=== PATIENT | male | born 1950 | race Caucasian/White ===

== ENCOUNTER 2019-07-13 05:07 | Inpatient (IN) ==
[2019-07-02 10:45] LABS: HEMATOCRIT 41.5 % (42.0-52.0); HEMOGLOBIN 14.1 g/dL (14.0-18.0); MCH 29.9 PG (27-31); MCV 88.1 FL (81-99); RBC 4.71 XMIL (4.7-6.1); WBC 4.95 X1000 (4.8-10.8)
[2019-07-02 11:16] LABS: AGAP 16; BUN 11 mg/dL (8-22); CALCIUM 8.8 mg/dL (8.8-10.2); CHLORIDE 102 mmol/L (98-107); COSMO 283; CREATININE 0.7 mg/dL (0.7-1.2); ESTIMATED GFR > 60; GLUCOSE 235 mg/dL (70-104); POTASSIUM 4.3 mmol/L (3.5-5.1); SODIUM 138 mmol/L (136-145); TCO2 20 mmol/L (25-35)
[2019-07-13] MEDS ORDERED: KEFZOL 1 GM/D5W 1 GM/50 ML IVPB ONE (05:39)
[2019-07-13] MEDS ORDERED: NITROGLYCERIN 50 MG/D5W 50 MG/250 ML IV.SOLN ONE (06:28)
[2019-07-13] MEDS ORDERED: LR 1,000 ML ONE ×2 (06:32→09:28)
[2019-07-13] MEDS ORDERED: NEO-SYNEPHRINE ONE (06:33)
[2019-07-13] MEDS ORDERED: XYLOCAINE-MPF 2% ONE (06:42)
[2019-07-13] MEDS ORDERED: NORCURON ONE (06:42)
[2019-07-13] MEDS ORDERED: SODIUM CHLORIDE 0.9% 10 ML ONE (06:42)
[2019-07-13] MEDS ORDERED: QUELICIN (DOSE) ONE (06:42)
[2019-07-13] MEDS ORDERED: FENTANYL ONE (06:43)
[2019-07-13] MEDS ORDERED: DIPRIVAN 1% ONE (06:43)
[2019-07-13] MEDS ORDERED: MARCAINE 0.25% PF/EPI 1:200,000 ONE (06:44)
[2019-07-13] MEDS ORDERED: NS 500 ML ONE (06:44)
[2019-07-13] MEDS ORDERED: XYLOCAINE 1% ONE (06:44)
[2019-07-13] MEDS ORDERED: NS 1,000 ML ONE (06:44)
[2019-07-13] MEDS ORDERED: HEPARIN ONE (06:44)
[2019-07-13] MEDS ORDERED: KEFZOL ONE (06:44)
[2019-07-13] MEDS ORDERED: VERSED ONE (06:52)
[2019-07-13] MEDS ORDERED: SODIUM CHLORIDE 0.9% ONE (06:53)
[2019-07-13] MEDS ORDERED: ROBINUL ONE ×2 (07:31→08:38)
[2019-07-13] MEDS ORDERED: ATROPINE ONE (07:31)
[2019-07-13] MEDS ORDERED: ZOFRAN ONE (07:32)
[2019-07-13] MEDS ORDERED: HEPARIN (DOSE) ONE (07:36)
[2019-07-13] MEDS ORDERED: OFIRMEV 1000 MG/ISOTONIC SOLN 1,000 MG/100 ML BOTTLE ONE (07:37)
[2019-07-13] MEDS ORDERED: EPHEDRINE ONE (07:39)
[2019-07-13] MEDS ORDERED: LTA KIT ONE (07:41)
[2019-07-13] MEDS ORDERED: NEOSTIGMINE ONE (08:40)
--- NOTE | 2019-07-13 09:21 | OPERATIVE NOTE ---
PROCEDURE DATE: 07/13/2019 PROCEDURE PERFORMED: Right carotid endarterectomy with patch angioplasty. SURGEON: Ryne Braga M.D. LOGGING ASSISTANT: Anselmo Ca RN. PREOPERATIVE DIAGNOSIS: High-grade right internal carotid stenosis. POSTOPERATIVE DIAGNOSIS: High-grade right internal carotid stenosis. DESCRIPTION OF PROCEDURE: Satisfactory general endotracheal anesthesia was achieved. The right side of the neck was prepped and draped in a sterile fashion. We placed the patient in a slight reverse Trendelenburg position. The skin was marked in an oblique fashion. We anesthetized the skin with 0.25 Marcaine with epinephrine. We incised the skin, and carried our incision into the subcutaneous tissue, through the platysma. We placed a Gelpi retractor. We identified the sternocleidomastoid muscle, and dissected along its anterior border. We identified the common carotid, and surrounded it with an umbilical tape. Then, 5000 units of heparin were given. We then ligated the branching veins coming off the internal jugular vein. We ligated them and divided them. We identified the hypoglossal nerve and protected it from harm. We surrounded the external carotid with a large vessel loop. This included the superior thyroid artery. The internal carotid was identified and surrounded with a small vessel loop. After the heparin circulated for 5 minutes, we then clamped off the vessels. Then, under 2.5 loupe magnification, we incised the common, extended the incision through the plaque in the takeoff of the internal, and up past the plaque in the internal. A 4 to 3 mm Sundt shunt was placed and secured. The clamp time was about 2 minutes. We then used a [place] to raise the plaque in the common, and then transected it with the Arauz scissors. We used a [place] to do an eversion endarterectomy of the external, and then continued to dissect the plaque out of the internal until a good taper point was noted in the internal. We irrigated out the endarterectomized vessel. All leaflets we could identify were removed. We then obtained a 1 x 6 bovine patch that had already been soaked in saline. We then sutured it to the artery with a running 6-0 Prolene under 2.5 loupe magnification. As we neared completion of the patch angioplasty, we back bled the external, removed the shunt from the internal, then removed the shunt from the common. Good back bleeding was present. We then finished the patch angioplasty. We held the internal occluded, opened the external and the common, and after 5 seconds, opened the internal. A good pulse was noted within the internal. Additional 6-0 Prolene simple stitches were placed around the artery to achieve satisfactory hemostasis. Some Ultrafoam was used, and again, we irrigated out the neck with Kefzol-impregnated saline. We placed a Vinnie drain within the wound. We removed the Ultrafoam, again irrigated. Hemostasis was completely satisfactory. We once again injected the subcutaneous tissue with 0.25 Marcaine with epinephrine. We then closed the platysma with a running 3-0 Polysorb. We closed the skin with a 4-0 Polysorb subcuticular stitch. A sterile dressing was applied. He tolerated it well, was awakened at the time of this dictation. cc: Ryne Braga MD
[2019-07-13] MEDS ORDERED: ADVAIR 250/50 DISKUS INH SCH (10:26)
[2019-07-13] MEDS ORDERED: BUSPAR PO SCH (10:26)
[2019-07-13] MEDS: CELEXA PO SCH (11:04)
[2019-07-13] MEDS: HYDROCHLOROTHIAZIDE PO SCH (11:04)
[2019-07-13] MEDS: SINGULAIR PO SCH (11:04)
[2019-07-13] MEDS: PRINIVIL PO SCH (11:04)
[2019-07-13] MEDS: FLOMAX PO SCH (11:05)
[2019-07-13] MEDS: LIPITOR PO SCH (11:05)
[2019-07-13] MEDS: ATARAX PO SCH (11:05)
[2019-07-13] MEDS: ASPIRIN PO SCH (11:05)
[2019-07-13] MEDS: PEPCID PO SCH (11:05)
[2019-07-13] MEDS: VITAMIN D PO SCH (11:05)
[2019-07-13] MEDS: BUSPAR PO SCH (11:05)
[2019-07-13] MEDS: OFIRMEV 1000 MG/ISOTONIC SOLN 1,000 MG/100 ML BOTTLE IV SCH ×4 (11:06→21:51)
[2019-07-13] MEDS: GLUCOPHAGE XR PO SCH ×2 (11:12→20:13)
[2019-07-13] MEDS: ULTRAM PO PRN (11:12)
[2019-07-13] MEDS: LR 1,000 ML IV SCH ×3 (11:12→21:57)
[2019-07-13] MEDS: COREG PO SCH ×2 (11:18→20:13)
[2019-07-13] MEDS ORDERED: GRALISE PO SCH (14:00)
[2019-07-13] MEDS: NEURONTIN PO SCH ×2 (15:01→20:13)
[2019-07-13] MEDS: HUMULIN 70/30 SUBQ SCH (16:50)
[2019-07-14] MEDS: ULTRAM PO PRN (03:01)
[2019-07-14] MEDS: OFIRMEV 1000 MG/ISOTONIC SOLN 1,000 MG/100 ML BOTTLE IV SCH (04:15)
[2019-07-14] MEDS ORDERED: APRESOLINE IV ONE (05:01)
[2019-07-14 05:31] LABS: BASO# 0.02 X1000 (0.0-0.2); BASO% 0.3 % (0.0-0.8); EOS# 0.16 X1000 (0.0-0.7); EOS% 2.1 % (0.0-10.0); HEMATOCRIT 38.8 % (42.0-52.0); HEMOGLOBIN 12.8 g/dL (14.0-18.0); IMM GRAN# 0.02 X1000 (0.0-0.04); IMM GRAN% 0.3 % (0.0-0.5); INR 1.09; LYMPH# 1.34 X1000 (1.2-3.4); LYMPH% 17.7 % (20.5-51.1); MCH 29.6 PG (27-31); MCV 89.6 FL (81-99); MONO# 0.58 X1000 (0.11-0.59); MONO% 7.6 % (1.7-9.3); MPV 10.8 FL (7.4-10.4); NEUT# 5.47 X1000 (1.4-6.5); PLT 140 X1000 (130-400); PROTIME 14.2 Seconds (11.0-16.0); RBC 4.33 XMIL (4.7-6.1); RDW 13.1 % (11.5-14.5); WBC 7.59 X1000 (4.8-10.8)
[2019-07-14 05:32] LABS: PTT 32.4 Seconds (22.3-41.8)
[2019-07-14] MEDS: SYMBICORT 160/4.5 MICROGM INHALER INH SCH ×3 (05:43→19:59)
[2019-07-14 06:12] LABS: AGAP 12; ALB/GLOB RATIO 1.4; ALBUMIN 3.7 g/dL (3.5-5.0); ALKALINE PHOSPHATASE 51 U/L (32-122); BUN 7 mg/dL (8-22); CALCIUM 8.8 mg/dL (8.8-10.2); CHLORIDE 101 mmol/L (98-107); CK PROFILE 55 U/L (24-204); COSMO 279; CREATININE 0.6 mg/dL (0.7-1.2); ESTIMATED GFR > 60; GLUCOSE 201 mg/dL (70-104); GOT 15 U/L (10-34); GPT 15 U/L (10-44); MAGNESIUM 1.3 mg/dL (1.5-2.7); POTASSIUM 4.2 mmol/L (3.5-5.1); SODIUM 138 mmol/L (136-145); TCO2 25 mmol/L (25-35); TOTAL BILIRUBIN 0.58 mg/dL (0.20-1.00); TOTAL PROTEIN 6.3 g/dL (6.3-8.3)
[2019-07-14] MEDS ORDERED: VASOTEC IV PRN (06:23)
[2019-07-14] MEDS ORDERED: MAGNESIUM SULFATE 2 GM/S.W.I. 2 GM/50 ML IVPB IV ONE (06:25)
[2019-07-14] MEDS ORDERED: SALINE LOCK IV FLUID XX ONE (07:01)
--- NOTE | 2019-07-14 07:27 | EKG Report ---
Test Performed on : 07/14/2019 05:13:20 AM Test Reason : EVAL Blood Pressure : / mmHG Vent. Rate : 062 BPM Atrial Rate : 062 BPM P-R Int : 174 ms QRS Dur : 092 ms QT Int : 438 ms P-R-T Axes : 062 042 044 degrees QTc Int : 444 ms Normal sinus rhythm. Normal ECG When compared with ECG of 09-MAR-2019 08:52, No significant change was found Confirmed by Annabelle WHITT, Zeb ([id number]) on 07/14/2019 9:02:04 AM
[2019-07-14] MEDS: GLUCOPHAGE XR PO SCH ×2 (08:43→22:49)
[2019-07-14] MEDS: COREG PO SCH ×2 (08:43→22:49)
[2019-07-14] MEDS: BUSPAR PO SCH (08:44)
[2019-07-14] MEDS: VITAMIN D PO SCH (08:44)
[2019-07-14] MEDS: CELEXA PO SCH (08:44)
[2019-07-14] MEDS: PRINIVIL PO SCH (08:44)
[2019-07-14] MEDS: FLOMAX PO SCH (08:44)
[2019-07-14] MEDS: PEPCID PO SCH (08:44)
[2019-07-14] MEDS: SINGULAIR PO SCH (08:44)
[2019-07-14] MEDS: ASPIRIN PO SCH (08:45)
[2019-07-14] MEDS: HYDROCHLOROTHIAZIDE PO SCH (08:45)
[2019-07-14] MEDS: NORCO-5 PO PRN (08:45)
[2019-07-14] MEDS: LIPITOR PO SCH (08:45)
[2019-07-14] MEDS: ATARAX PO SCH (08:46)
[2019-07-14] MEDS: NEURONTIN PO SCH ×3 (08:46→22:49)
[2019-07-14] MEDS: HUMULIN 70/30 SUBQ SCH ×2 (08:57→16:50)
[2019-07-14] MEDS ORDERED: INSULIN PEN NEEDLES ONE (09:09)
--- NOTE | 2019-07-14 14:30 | CONSULTATION ---
DATE AND TIME OF CONSULTATION: 07/14/2019 at 0515. REQUESTING PHYSICIAN: Dr. Nolen. REASON FOR CONSULT: Hypertensive urgency. HISTORY OF PRESENT ILLNESS: Mr. Bose is a 68-year-old male who did undergo surgery for a right carotid endarterectomy with patch angioplasty by Dr. Braga on 07/13/2019. It does appear that all day throughout the day on 07/13/2019, his blood pressure was elevated. It was elevated anywhere systolically from the 170s to 190s, though throughout the night on 07/13/2019, into the morning of 07/14/2019, it did continue to increase. This morning at 4 a.m., he was noted to have a heart rate of 70, respirations were 19, blood pressure was 250/103, and oxygen saturation was 94% to 96% on nasal cannula at 2 L. He also does have an arterial line. The arterial line pressure did have a reading of 264/83. Given this, the patient's nurse did contact Dr. Nolen, and they were concerned about his blood pressure. Dr. Nolen did ask us to see the patient for assistance with blood pressure management. The patient is not symptomatic. He is reporting, not a headache, but some soreness/pain on the back right side of his head, though he states this has been present since he had his surgery. He denies any dizziness, chest pain, shortness of breath, or cough. He denies any abdominal pain. He has reported that he has had some nausea throughout the day, though denies any vomiting or diarrhea. He denies any hematochezia or melena. He denies any dysuria. He also denies any pain, numbness, tingling, or swelling in the extremities. He is alert and oriented x3. He has good equal hand grasps and muscle strength bilaterally. Speech is clear and understandable. There are no focal neurological deficits noted at this time. We did order an EKG and stat labs, as well as Dr. Nolen did order him to have 10 mg of hydralazine. This did improve his blood pressure to a systolic blood pressure of 180. REVIEW OF SYSTEMS: A 14-point review of systems was conducted with the patient, and all were negative, except for pertinent positives mentioned in the above HPI. PAST MEDICAL HISTORY: 1. COPD. 2. Rhinitis. 3. Coronary artery disease, status post myocardial infarction and stent placement x1. 4. Peripheral vascular disease with reported angioplasty and stent placement in bilateral iliac arteries. 5. Hypertension. 6. Hyperlipidemia. 7. Depression. 8. Gastroesophageal reflux disease. 9. Benign prostatic hypertrophy. 10. Umbilical hernia. PAST SURGICAL HISTORY: 1. Tonsillectomy. 2. Bilateral knee arthroscopy. 3. Recent left carotid endarterectomy. 4. Status post a right carotid artery endarterectomy on 07/13/2019. 5. Umbilical hernia repair. 6. Cardiac stent placement x1. 7. Bilateral eye surgery. SOCIAL HISTORY: The patient just quit smoking on Saturday. He states he has smoked for 30 years. He did briefly quit for a few years, though unfortunately has started back, and has just recently quit on 07/12/2019. He has no known alcohol or illicit drug use. He is . He does live with his . He is retired. FAMILY HISTORY: Positive for lung cancer, prostate cancer, emphysema in both his mother and father. His father also had a history of coronary artery bypass graft and abdominal aneurysm and hypertension. ALLERGIES: The patient has allergies to dicyclomine and promethazine. HOME MEDICATIONS: 1. Lipitor 40 mg p.o. daily. 2. Symbicort 160/4.5 mcg inhaler 2 puffs inhaled b.i.d. 3. Buspirone 5 mg p.o. daily. 4. Vitamin D3, 1000 units p.o. daily. 5. Celexa 40 mg p.o. daily. 6. Plavix 75 mg p.o. daily. 7. Pepcid 20 mg p.o. daily. 8. Advair Diskus 250/50 Diskus 1 puff inhaled daily. 9. Gabapentin 600 mg p.o. t.i.d. 10. Novolin 70/30, 50 units subcutaneously b.i.d. 11. Hydrochlorothiazide 12.5 mg p.o. daily. 12. Atarax 75 mg p.o. daily. 13. Metformin extended-release 1000 mg p.o. b.i.d. 14. Singulair 10 mg p.o. daily. 15. Nitroglycerin 0.4 mg sublingual p.r.n. chest pain. 16. Flomax 0.4 mg p.o. daily. DIAGNOSTIC DATA: White blood cell count is 7590, hemoglobin 12.8, hematocrit 38.8, platelet count is 140,000. PT 14.29, INR is 1.09, PTT is 32.4. Sodium is 138, potassium 4.2, chloride 101, serum bicarb is 12, BUN 7, creatinine 0.6, with a GFR greater than 60, glucose 201, calcium 8.8. Magnesium 1.3. Liver function tests within normal limits. CK is 55. Troponin is less than 0.01. EKG showed normal sinus rhythm at a rate of 62 with a QTc of 444. In comparison with the previous EKG from 02/2017, there do not appear to be any acute changes noted. PHYSICAL EXAMINATION: Vital Signs: Temperature 99.2 degrees, heart rate 70, respirations 19, blood pressure is 193/76, oxygen saturation is 94% to 96% on nasal cannula at 2 L. General: Mr. Bose is a very pleasant, 68-year-old, male. He was resting in the inpatient bed. He was in no acute distress. He was awake, alert, and able to answer questions appropriately. HEENT: Head is atraumatic, normocephalic. Pupils are equal, round, reactive to light, were 3 mm bilaterally and brisk. Oral mucosa is slightly dry. Oropharynx is clear. Neck: Supple. Trachea is midline. The patient does have a surgical bandage noted over his right carotid/right neck area. He does have a drain noted as well. It did have a small amount of pink-tinged fluid noted. Cardiovascular: The patient has S1, S2 present. No murmurs, gallops, rubs appreciated, with a regular rate and rhythm. Pulmonary: The patient has symmetrical chest expansion bilaterally. Lung sounds are clear to auscultation in bilateral full escamilla. Abdomen: Soft, non-distended. The patient only reported some mild tenderness upon palpation in the left lower quadrant. Bowel sounds were present in all 4 quadrants and were normoactive. Extremities: No cyanosis or edema noted. Pulse, motor, and sensory were intact in all extremities. Radial pulses were 2+ bilaterally, pedal pulses 1+ bilaterally. Integumentary: The patient's skin is pink, warm, and dry. Neurological: The patient is alert and oriented to person, place, time, and situation. He is able to move all extremities. He denies any numbness or tingling. He had equal hand grasps and muscle strength bilaterally. There is no facial droop noted. There are no focal neurological deficits noted. ASSESSMENT AND PLAN: 1. Hypertensive urgency. We will continue with the patient's home medications that had already been initiated, which include Coreg, hydrochlorothiazide, and lisinopril, though in addition, we will add an as needed medication of Vasotec 1.25 mg intravenously every 6 hours as needed for blood pressure greater than 180. We will continue to monitor his neurovascular status closely. He is on continuous cardiac telemetry and monitoring. He also does have arterial line as well. 2. Status post right carotid endarterectomy. The patient seems to be doing well since the surgery. Dr. Braga is managing this, and we will follow along and follow any recommendations from him. 3. Hyperlipidemia. Will continue his atorvastatin. 4. History of coronary artery disease, status post cardiac stent placement. Will continue his already prescribed cardiac medications, including his aspirin and Plavix. 5. Peripheral vascular disease. Will continue his aspirin and Plavix, as well as his statin as mentioned above. 6. Diabetes mellitus. We will continue with previously prescribed metformin and Humulin 70/30. Will do pattern fingerstick blood sugars. 7. Hypomagnesemia. His magnesium this morning was 1.3. We have ordered some intravenous magnesium sulfate 2 grams, and we will continue to follow. We will recheck his magnesium levels after we have repleted this. 8. History of chronic obstructive pulmonary disease. We will continue with his Symbicort and Advair. The patient is in the intensive care unit for close monitoring. We will continue with vital signs per intensive care unit protocol. He will be on a clear liquid diet. The patient's primary care provider is Dr. Bueno. He will be taking back over his care at 7:00 this morning. We have placed a consult for Dr. Bueno in the chart. Further orders and recommendations pending hospital course, diagnostic studies, and physician evaluation. Dictated by DYLAN Briscoe for Rubin King MD I have performed a face to face diagnostic evaluation. Labs/ Xray- reviewed, Exam- Chest- clear CV- regular. A/P- Hypertensive urgency- Admit, NPO, IV Vasotec, monitor on telemetry. Dr. King cc: MD Deion Ch MD MTDD
--- NOTE | 2019-07-14 14:31 | GENERAL SURGERY PROGRESS NOTE ---
DATE: 07/14/2019 Mr. Bose is doing well. This morning he is awake, alert and oriented. Neurologically, he is fine. His trachea is the midline. No significant neck swelling. The plan is to remove his arterial line, remove his drain. Give him solid food, and transfer him up to a regular room. cc: MD Deion Hernandez MD
[2019-07-15 07:36] VITALS: BP 165/56
[2019-07-15] MEDS ORDERED: INSULIN PEN NEEDLES ONE (07:48)
[2019-07-15] MEDS: SYMBICORT 160/4.5 MICROGM INHALER INH SCH (08:16)
[2019-07-15] MEDS ORDERED: PRINIVIL PO SCH (09:00)
[2019-07-15] MEDS: SINGULAIR PO SCH (09:19)
[2019-07-15] MEDS: FLOMAX PO SCH (09:19)
[2019-07-15] MEDS: BUSPAR PO SCH (09:19)
[2019-07-15] MEDS: HYDROCHLOROTHIAZIDE PO SCH (09:19)
[2019-07-15] MEDS: ATARAX PO SCH (09:19)
[2019-07-15] MEDS: COREG PO SCH (09:19)
[2019-07-15] MEDS: NEURONTIN PO SCH (09:19)
[2019-07-15] MEDS: PEPCID PO SCH (09:19)
[2019-07-15] MEDS: VITAMIN D PO SCH (09:20)
[2019-07-15] MEDS: CELEXA PO SCH (09:20)
[2019-07-15] MEDS: ASPIRIN PO SCH (09:20)
[2019-07-15] MEDS: LIPITOR PO SCH (09:20)
[2019-07-15] MEDS: GLUCOPHAGE XR PO SCH (09:20)
[2019-07-15] MEDS: HUMULIN 70/30 SUBQ SCH (09:23)
[2019-07-15] MEDS: NORCO-5 PO PRN (09:29)
--- NOTE | 2019-07-15 10:21 | PROGRESS NOTE ---
DATE: 07/15/2019 SUBJECTIVE: Mr. Bose had carotid endarterectomy on the right side. Today is postop day 2. Clinically patient is doing better. The patient claims he had some restless night last night. Denied any headache, no fever or chills, mild cough, no expectoration. Blood pressure was doing better. Denied any abdominal pain, nausea, vomiting. Occasional cough. Admission history and physical and consultation noted. OBJECTIVE: Vital Signs: Blood pressure 170/62, pulse 68, respiration 19, temperature 98.2 degrees. Neck/Eyes: Supple. No JVD. Dressed wound on the right side of the neck. Pupils equally reacting to light. Lungs: Bibasilar crepitation. Heart: S1 and S2 heard. Abdomen: Soft, globular. Bowel sounds present. NUMERICAL ANALYSIS GROUP MANAGER: Alert, awake able to move all 4 limbs. CONSIDERATION: 1. Uncontrolled hypertension, partially due to pain and discomfort increase lisinopril 10 mg twice a day. Advised him to resume all his home medicine. 2. His other problems includes carotid stenosis status post carotid endarterectomy. 3. Diabetes mellitus on insulin. 4. Sleep apnea. The patient is not using his CPAP. The patient claims he does have problem with mask advised. Him to discuss with his sleep MD and get the right size of the mask and use it. 5. Peripheral neuropathy. 6. Morbid obesity. Encouraged weight reduction. 7. Tobacco abuse. Discussed at length with the patient about smoking cessation. 8. Hyperlipidemia. 9. Benign prostatic hypertrophy. MEDICATIONS: Current medications reviewed and continued. OVERALL PLAN: Discussed at length with the patient. Advised him to resume his home medicine. Monitor blood pressure at home. Weight reduction. Lab done yesterday noted. cc: Deion Bueno MD
--- NOTE | 2019-07-15 19:07 | GENERAL SURGERY PROGRESS NOTE ---
DATE: 07/15/2019 SUBJECTIVE: His second postoperative day after right carotid endarterectomy. He is doing generally well. OBJECTIVE: His trachea is midline. No significant swelling. He is neurologically fine. Blood pressure this morning was 165/56. ASSESSMENT/PLAN: Discharge him today. He will resume his usual medicines. Wound care was discussed. He will return to see me in the office in a week. He is to follow up with Dr. Bueno, especially about his blood pressure. cc: MD Deion Hernandez MD
--- NOTE | 2019-07-18 19:35 | DISCHARGE SUMMARY ---
ADMISSION DATE: 07/13/2019 DISCHARGE DATE: 07/15/2019 PRIMARY DISCHARGE DIAGNOSIS: High-grade right carotid stenosis. PRIMARY PROCEDURE: Right carotid endarterectomy. HISTORY: Mr. Bose is a 68-year-old who had a previous left carotid endarterectomy. He now presents for right carotid endarterectomy due to high-grade stenosis. HOSPITAL COURSE: He was brought to the operating room on the morning of 07/13 and underwent the above-noted procedure. Postoperatively he did generally well. He had some mild hypertension, but this was controlled with some IV medication. Dr. Bueno, who is his regular physician, saw him the morning of 07/15. He will follow him for his blood pressure, and he advised him regarding monitoring his blood pressure at home and weight reduction. On the morning of 07/15 he was doing well. Neurologically he was fine. There was no significant hematoma. His drain had been removed. It was felt he could be discharged home. DISCHARGE INSTRUCTIONS: He will return to see me in the office in a week. He will continue with his Plavix. cc: MD Deion Hernandez MD
== END 2019-07-15 10:32 | disposition home or self-care (01) | DRG 39 ==
LOC: SURHOLD 05:07 → ICU 09:05 → 4N 07-14 14:22
PROVIDERS: ADMIT Internal Medicine; ATTEND Surgery